=== PATIENT | female | born 1965 | race Caucasian/White ===

== ENCOUNTER 2019-09-28 16:53 | Inpatient (IN) ==
[2019-09-28] MEDS ORDERED: Isovue-370 500 ML BOTTLE IVP ONE (17:11)
[2019-09-28] MEDS ORDERED: *HR* FentaNYL (PF) 100 MCG/2 ML VIAL IVP ONE (17:11)
[2019-09-28] MEDS ORDERED: Ipratropium/Albuterol Neb 3 ML IH ONE (17:12)
[2019-09-28 17:32] LABS: Basophils % 0.1 %; Hemoglobin 6.8 g/dL (11.5-15.4); Immature Granulocytes % 1.1 % (0-4); Lymphocytes # 1.2 K/mcL (0.6-4.6); Lymphocytes % 9.1 %; Mean Corpuscular HGB Conc 30.9 g/dL (31.6-35.5); Mean Corpuscular Hemoglobin 22.7 pg (28.0-33.3); Mean Corpuscular Volume 73.6 fL (83.0-100.0); Mean Platelet Volume 9.6 fL (9.4-12.4); Monocytes # 1.2 K/mcL (0.0-1.3); Monocytes % 9.4 %; Neutrophils # 10.6 K/mcL (1.6-8.9); Nucleated Red Blood Cells 0.3 /100 WBC (0); Platelet Count 467 K/mcL (140-400); Red Blood Count 2.99 M/mcL (3.82-4.97); Red Cell Distribution Width 19.2 % (11.5-14.5); Segmented Neutrophils % 80.3 %; White Blood Count 13.1 K/mcL (4.3-11.1)
[2019-09-28 17:57] LABS: BUN/Creatinine Ratio 16 (6-26); Blood Urea Nitrogen 8 mg/dL (6-20); Calcium 9.1 mg/dL (8.6-10.3); Carbon Dioxide 27 mEq/L (23-29); Chloride 97 mEq/L (98-107); Glucose 130 mg/dL (70-105); Osmolality,Calculated 280 (280-300); Potassium 2.8 mEq/L (3.5-5.1); Sodium 135 mEq/L (136-145); Troponin I 0.04 ng/mL (< 0.04); eGFR For African Americans > 60 (> 60); eGFR For Non-African Americans > 60 (> 60)
[2019-09-28] MEDS ORDERED: *HR* HYDROmorphone (PF) 1 MG/ML SYRINGE IVP ONE (18:16)
[2019-09-28] MEDS ORDERED: Potassium Chloride 40 MEQ, Lidocaine 1% 2 ML in 0.9 % Sodium Chloride 500 ML IVPB ONE (18:17)
[2019-09-28] MEDS ORDERED: 0.9 % Sodium Chloride 500 ML ONE (19:51)
[2019-09-28] MEDS ORDERED: Pantoprazole 80 MG in 0.9 % Sodium Chloride 50 ML IVPB ONE (20:27)
[2019-09-28 20:34] LABS: Bilirubin,Urine Negative (Negative); Blood,Urine Negative (Negative); Clarity,Urine Clear (Clear); Color,Urine Yellow (Yellow); Glucose,Urine (UA) Normal (Normal); Ketones,Urine 80 mg/dL (Negative); Leukocyte Esterase,Urine Negative (Negative); Nitrite,Urine Negative (Negative); Protein,Urine Trace mg/dL (Neg-Trace); Specific Gravity,Urine > 1.030 (1.010-1.025)
[2019-09-28] MEDS ORDERED: Naloxone 0.4 MG/ML INJ IVP PRN (23:50)
[2019-09-28] MEDS ORDERED: D5% in Water 1,000 ML IVC PRN (23:54)
[2019-09-28] MEDS ORDERED: *HR* Dextrose 50 % in Water (Syg) 50 ML SYRINGE IVP PRN (23:54)
[2019-09-28] MEDS ORDERED: Dextrose Gel 15 GM/37.5 ML TUBE PO PRN ×2 (23:54)
[2019-09-28] MEDS ORDERED: Albuterol 2.5 MG/3 ML NEBULIZER IH PRN (23:54)
[2019-09-29] MEDS ORDERED: 0.9 % Sodium Chloride 250 ML ONE (00:09)
[2019-09-29 01:07] LABS: Hemoglobin 7.4 g/dL (11.5-15.4); Mean Corpuscular HGB Conc 30.8 g/dL (31.6-35.5); Mean Corpuscular Hemoglobin 23.3 pg (28.0-33.3); Mean Corpuscular Volume 75.5 fL (83.0-100.0); Mean Platelet Volume 10.3 fL (9.4-12.4); Platelet Count 422 K/mcL (140-400); Red Blood Count 3.18 M/mcL (3.82-4.97); Red Cell Distribution Width 19.1 % (11.5-14.5); White Blood Count 13.5 K/mcL (4.3-11.1)
[2019-09-29 01:20] LABS: Alanine Aminotransferase 7 Units/L (7-52); Albumin 3.3 g/dL (3.5-5.7); Albumin/Globulin Ratio 1.1 (1.1-2.2); Alkaline Phosphatase 101 Units/L (34-104); Aspartate Amino Transferase 20 Units/L (13-39); BUN/Creatinine Ratio 13 (6-26); Bilirubin,Total 1.1 mg/dL (0.3-1.0); Blood Urea Nitrogen 6 mg/dL (6-20); Calcium 8.6 mg/dL (8.6-10.3); Carbon Dioxide 24 mEq/L (23-29); Chloride 101 mEq/L (98-107); Globulin 3.1 g/dL (2.4-3.5); Glucose 120 mg/dL (70-105); Magnesium 1.6 mg/dL (1.6-2.6); Osmolality,Calculated 281 (280-300); Phosphorous 1.5 mg/dL (2.7-4.5); Potassium 3.2 mEq/L (3.5-5.1); Sodium 136 mEq/L (136-145); Total Protein 6.4 g/dL (6.4-8.9); eGFR For African Americans > 60 (> 60); eGFR For Non-African Americans > 60 (> 60)
[2019-09-29] MEDS: Insulin LISPRO 300 UNITS/3 ML VIAL SQ SCH ×4 (02:59→18:46)
[2019-09-29] MEDS ORDERED: Potassium Chloride 40 MEQ, Lidocaine 1% 2 ML in 0.9 % Sodium Chloride 500 ML IVPB ONE (03:14)
[2019-09-29] MEDS: Ipratropium/Albuterol Neb 3 ML IH SCH ×4 (04:12→22:09)
[2019-09-29] MEDS ORDERED: *HR* LORazepam 2 MG/ML VIAL IVP ONE (04:26)
[2019-09-29] MEDS ORDERED: *HR* LORazepam 2 MG/ML VIAL ONE (04:29)
[2019-09-29] MEDS: Pantoprazole 40 MG VIAL IVP SCH ×2 (06:04→18:46)
[2019-09-29] MEDS ORDERED: Potassium Phosphate 44 MEQ in 0.9 % Sodium Chloride 250 ML IVPB ONE (16:07)
[2019-09-29 17:57] LABS: Hematocrit 29.8 % (35.3-44.9); Hemoglobin 8.8 g/dL (11.5-15.4)
[2019-09-29] MEDS ORDERED: ALPRAZolam 0.5 MG TABLET PO PRN (20:21)
[2019-09-29] MEDS ORDERED: traZODone 50 MG TABLET PO SCH (21:00)
[2019-09-30] MEDS: Insulin LISPRO 300 UNITS/3 ML VIAL SQ SCH ×3 (00:36→12:03)
[2019-09-30] MEDS: Ipratropium/Albuterol Neb 3 ML IH SCH ×3 (04:51→15:13)
[2019-09-30] MEDS: Pantoprazole 40 MG VIAL IVP SCH (05:25)
[2019-09-30] MEDS ORDERED: Ketorolac 15 MG/ML VIAL IVP ONE (05:58)
[2019-09-30 07:13] LABS: Basophils % 0.3 %; Eosinophils # 0.1 K/mcL (0.0-0.6); Eosinophils % 0.8 %; Hematocrit 28.7 % (35.3-44.9); Hemoglobin 8.5 g/dL (11.5-15.4); Immature Granulocytes % 0.4 % (0-4); Lymphocytes # 2.5 K/mcL (0.6-4.6); Lymphocytes % 20.8 %; Mean Corpuscular HGB Conc 29.6 g/dL (31.6-35.5); Mean Corpuscular Hemoglobin 23.6 pg (28.0-33.3); Mean Corpuscular Volume 79.7 fL (83.0-100.0); Mean Platelet Volume 10.2 fL (9.4-12.4); Monocytes # 1.6 K/mcL (0.0-1.3); Monocytes % 13.6 %; Neutrophils # 7.7 K/mcL (1.6-8.9); Nucleated Red Blood Cells 0.2 /100 WBC (0); Platelet Count 416 K/mcL (140-400); Red Cell Distribution Width 19.6 % (11.5-14.5); Segmented Neutrophils % 64.1 %
[2019-09-30 07:32] LABS: BUN/Creatinine Ratio 12 (6-26); Blood Urea Nitrogen 6 mg/dL (6-20); Carbon Dioxide 24 mEq/L (23-29); Chloride 104 mEq/L (98-107); Glucose 105 mg/dL (70-105); Osmolality,Calculated 286 (280-300); Potassium 3.4 mEq/L (3.5-5.1); Sodium 139 mEq/L (136-145); eGFR For African Americans > 60 (> 60); eGFR For Non-African Americans > 60 (> 60)
[2019-09-30] MEDS ORDERED: Losartan/HCTZ 50-12.5 TABLET PO PRN (09:13)
[2019-09-30] MEDS ORDERED: SUMAtriptan succinate 50 MG TABLET PO PRN (09:13)
[2019-09-30] MEDS ORDERED: Budesonide/Formoterol 160/4.5 1 PUFF INH IH SCH (10:00)
[2019-09-30] MEDS ORDERED: Propofol 500 MG/50 ML INFUS..BTL ONE (12:39)
[2019-09-30] MEDS ORDERED: Lidocaine -MPF 2% 2 ML VIAL ONE (12:39)
[2019-09-30 12:46] VITALS: BP 156/79
[2019-09-30] MEDS ORDERED: Gabapentin 400 MG CAPSULE PO SCH (15:00)
[2019-10-01] MEDS ORDERED: Ondansetron ODT 4 MG TAB.RAPDIS PO SCH (09:00)
[2019-10-01] MEDS ORDERED: Furosemide 40 MG TABLET PO SCH (09:00)
[2019-10-01] MEDS ORDERED: Fluticasone Propionate Nasal 50 MCG/SPRAY BOTTLE NS SCH (09:00)
[2019-10-01] MEDS ORDERED: Tiotropium 18 MCG inhalation IH SCH (10:00)
[2019-10-03] MEDS ORDERED: (Etanercept [Enbrel] 50 MG) SQ SCH (09:13)
== END 2019-09-30 18:45 | disposition home or self-care (01) | DRG 663 ==
LOC: 3ANU 16:53 → EMEROOARM 16:53 → SUATTDRO 20:51 → 3ANU 21:20
PROVIDERS: ADMIT Family Medicine; ATTEND Internal Medicine

== ENCOUNTER 2019-10-01 20:36 | Inpatient (IN) ==
[2019-10-01] MEDS ORDERED: levoFLOXacin 500 MG/100 ML 500 MG/100 ML BAG IVPB ONE (21:38)
[2019-10-01] MEDS ORDERED: Piperacillin/Tazobactam 3.375 GM in 0.9 % Sodium Chloride Mini Bag 100 ML IVPB ONE (21:38)
[2019-10-01 21:39] LABS: Basophils % 0.2 %; Eosinophils # 0.1 K/mcL (0.0-0.6); Eosinophils % 0.4 %; Hematocrit 28.3 % (35.3-44.9); Hemoglobin 8.6 g/dL (11.5-15.4); Immature Granulocytes % 0.6 % (0-4); Lymphocytes # 0.8 K/mcL (0.6-4.6); Mean Corpuscular HGB Conc 30.4 g/dL (31.6-35.5); Mean Corpuscular Hemoglobin 23.6 pg (28.0-33.3); Mean Corpuscular Volume 77.5 fL (83.0-100.0); Mean Platelet Volume 9.7 fL (9.4-12.4); Monocytes # 0.4 K/mcL (0.0-1.3); Monocytes % 2.6 %; Neutrophils # 14.9 K/mcL (1.6-8.9); Platelet Count 386 K/mcL (140-400); Red Blood Count 3.65 M/mcL (3.82-4.97); Red Cell Distribution Width 20.1 % (11.5-14.5); Segmented Neutrophils % 91.2 %; White Blood Count 16.3 K/mcL (4.3-11.1)
[2019-10-01 22:01] LABS: Alanine Aminotransferase 11 Units/L (7-52); Albumin 3.3 g/dL (3.5-5.7); Albumin/Globulin Ratio 1.1 (1.1-2.2); Alkaline Phosphatase 109 Units/L (34-104); Aspartate Amino Transferase 26 Units/L (13-39); BUN/Creatinine Ratio 11 (6-26); Bilirubin,Total 1.1 mg/dL (0.3-1.0); Blood Urea Nitrogen 5 mg/dL (6-20); Calcium 8.6 mg/dL (8.6-10.3); Carbon Dioxide 22 mEq/L (23-29); Chloride 101 mEq/L (98-107); Globulin 3.1 g/dL (2.4-3.5); Glucose 122 mg/dL (70-105); Osmolality,Calculated 275 (280-300); Potassium 3.4 mEq/L (3.5-5.1); Sodium 133 mEq/L (136-145); Total Protein 6.4 g/dL (6.4-8.9); eGFR For African Americans > 60 (> 60); eGFR For Non-African Americans > 60 (> 60)
[2019-10-01 22:02] LABS: Troponin I 0.03 ng/mL (< 0.04)
[2019-10-01] MEDS ORDERED: *HR* HYDROmorphone (PF) 1 MG/ML SYRINGE IVP ONE (22:57)
[2019-10-02] MEDS ORDERED: Ondansetron 4 MG/2 ML VIAL IVP PRN (01:12)
[2019-10-02] MEDS ORDERED: Naloxone 0.4 MG/ML INJ IVP PRN (01:12)
[2019-10-02] MEDS ORDERED: Furosemide 40 MG/4 ML VIAL IVP ONE (01:18)
[2019-10-02] MEDS ORDERED: *HR* Dextrose 50 % in Water (Syg) 50 ML SYRINGE IVP PRN (01:20)
[2019-10-02] MEDS ORDERED: D5% in Water 1,000 ML IVC PRN (01:20)
[2019-10-02] MEDS ORDERED: Dextrose Gel 15 GM/37.5 ML TUBE PO PRN ×2 (01:20)
[2019-10-02 02:50] LABS: Basophils % 0.1 %; Hematocrit 30.4 % (35.3-44.9); Hemoglobin 9.1 g/dL (11.5-15.4); Immature Granulocytes % 0.6 % (0-4); Lymphocytes # 0.8 K/mcL (0.6-4.6); Lymphocytes % 4.8 %; Mean Corpuscular HGB Conc 29.9 g/dL (31.6-35.5); Mean Corpuscular Hemoglobin 23.3 pg (28.0-33.3); Mean Corpuscular Volume 77.7 fL (83.0-100.0); Mean Platelet Volume 9.9 fL (9.4-12.4); Monocytes # 0.3 K/mcL (0.0-1.3); Neutrophils # 14.5 K/mcL (1.6-8.9); Platelet Count 443 K/mcL (140-400); Red Blood Count 3.91 M/mcL (3.82-4.97); Red Cell Distribution Width 20.2 % (11.5-14.5); Segmented Neutrophils % 92.5 %; White Blood Count 15.7 K/mcL (4.3-11.1)
[2019-10-02 02:54] LABS: INR 1.5; Prothrombin Time 16.5 Seconds (9.4-12.1)
[2019-10-02 03:10] LABS: Alanine Aminotransferase 11 Units/L (7-52); Albumin 3.5 g/dL (3.5-5.7); Albumin/Globulin Ratio 1.1 (1.1-2.2); Alkaline Phosphatase 113 Units/L (34-104); Aspartate Amino Transferase 27 Units/L (13-39); BUN/Creatinine Ratio 10 (6-26); Bilirubin,Total 1.1 mg/dL (0.3-1.0); Blood Urea Nitrogen 5 mg/dL (6-20); Carbon Dioxide 22 mEq/L (23-29); Chloride 102 mEq/L (98-107); Globulin 3.3 g/dL (2.4-3.5); Glucose 182 mg/dL (70-105); Magnesium 1.6 mg/dL (1.6-2.6); Osmolality,Calculated 276 (280-300); Phosphorous 3.6 mg/dL (2.7-4.5); Potassium 3.3 mEq/L (3.5-5.1); Sodium 132 mEq/L (136-145); Total Protein 6.8 g/dL (6.4-8.9); eGFR For African Americans > 60 (> 60); eGFR For Non-African Americans > 60 (> 60)
[2019-10-02] MEDS: Ipratropium/Albuterol Neb 3 ML IH SCH ×6 (03:12→23:34)
[2019-10-02 04:47] LABS: Estimated Average Glucose 126 mg/dl
[2019-10-02] MEDS: *HR* Heparin 5,000 UNIT/ML VIAL SQ SCH ×3 (05:04→20:44)
[2019-10-02] MEDS: Tiotropium 18 MCG inhalation IH SCH (07:39)
[2019-10-02] MEDS: Budesonide/Formoterol 160/4.5 1 PUFF INH IH SCH ×2 (07:40→20:13)
[2019-10-02] MEDS: Piperacillin/Tazobactam 3.375 GM in 0.9 % Sodium Chloride Mini Bag 100 ML IVPB SCH ×2 (08:23→17:20)
[2019-10-02] MEDS: Insulin LISPRO 300 UNITS/3 ML VIAL SQ SCH ×4 (08:28→20:45)
[2019-10-02] MEDS: Gabapentin 400 MG CAPSULE PO SCH ×3 (08:30→20:43)
[2019-10-02] MEDS: Magnesium Oxide 400 MG TABLET PO SCH (08:31)
[2019-10-02] MEDS: Aspirin Enteric Coated 81 MG Tablet PO SCH (08:31)
[2019-10-02] MEDS: Famotidine 20 MG TABLET PO SCH (08:32)
[2019-10-02] MEDS: Methylphenidate HCl 10 MG TABLET PO SCH ×2 (08:32→20:43)
[2019-10-02] MEDS ORDERED: SUMAtriptan succinate 50 MG TABLET PO PRN (09:00)
[2019-10-02] MEDS ORDERED: Furosemide 40 MG/4 ML VIAL IVP STA (12:41)
[2019-10-02] MEDS ORDERED: Furosemide 40 MG/4 ML VIAL ONE (12:53)
[2019-10-02] MEDS: Fluticasone Propionate Nasal 50 MCG/SPRAY BOTTLE NS SCH (13:00)
[2019-10-02] MEDS ORDERED: Isovue-370 500 ML BOTTLE IVP ONE (14:30)
[2019-10-02] MEDS: traZODone 50 MG TABLET PO SCH (20:44)
[2019-10-02 23:52] LABS: ABG Base Excess 5 mEq/L (-2 to 3); ABG HCO3 29 mEq/L (21-27); ABG Oxygen Saturation 93 % (95-98); ABG PCO2 39 mmHg (35-45); ABG PH 7.48 pH Units (7.32-7.45); ABG PO2 62 mmHg (85-104); ABG TCO2 30 mEq/L (20-26)
[2019-10-03] MEDS: Piperacillin/Tazobactam 3.375 GM in 0.9 % Sodium Chloride Mini Bag 100 ML IVPB SCH ×3 (01:03→14:53)
[2019-10-03 01:34] LABS: Adenovirus Not Detected (Not Detect); Bordetella Pertussis Not Detected (Not Detect); Chlamydophila pneumoniae Not Detected (Not Detect); Coronavirus 229E Not Detected (Not Detect); Coronavirus HKU1 Not Detected (Not Detect); Coronavirus NL63 Not Detected (Not Detect); Coronavirus OC43 Not Detected (Not Detect); Human Metapneumovirus Not Detected (Not Detect); Human Rhinovirus/Enterovirus Not Detected (Not Detect); Influenza A Subtype 2009 H1 Not Detected (Not Detect); Influenza B Not Detected (Not Detect); Mycoplasma pneumoniae Not Detected (Not Detect); Parainfluenza Virus 1 Not Detected (Not Detect); Parainfluenza Virus 2 Not Detected (Not Detect); Parainfluenza Virus 3 Not Detected (Not Detect); Parainfluenza Virus 4 Not Detected (Not Detect); Respiratory Syncytial Virus Not Detected (Not Detect)
[2019-10-03 01:43] LABS: Mean Corpuscular Volume 78.8 fL (83.0-100.0)
[2019-10-03 01:58] LABS: Basophils # 0.1 K/mcL (0.0-0.2); Basophils % 0.3 %; Eosinophils # 0.1 K/mcL (0.0-0.6); Eosinophils % 0.4 %; Hematocrit 28.2 % (35.3-44.9); Hemoglobin 8.4 g/dL (11.5-15.4); Immature Granulocytes % 0.6 % (0-4); Lymphocytes # 2.6 K/mcL (0.6-4.6); Lymphocytes % 13.1 %; Mean Corpuscular HGB Conc 29.8 g/dL (31.6-35.5); Mean Corpuscular Hemoglobin 23.5 pg (28.0-33.3); Monocytes # 1.3 K/mcL (0.0-1.3); Monocytes % 6.7 %; Neutrophils # 15.6 K/mcL (1.6-8.9); Platelet Count 483 K/mcL (140-400); Red Blood Count 3.58 M/mcL (3.82-4.97); Red Cell Distribution Width 20.4 % (11.5-14.5); Segmented Neutrophils % 78.9 %; White Blood Count 19.7 K/mcL (4.3-11.1)
[2019-10-03 02:06] LABS: Alanine Aminotransferase 12 Units/L (7-52); Albumin 3.3 g/dL (3.5-5.7); Alkaline Phosphatase 109 Units/L (34-104); Aspartate Amino Transferase 29 Units/L (13-39); BUN/Creatinine Ratio 13 (6-26); Bilirubin,Total 0.7 mg/dL (0.3-1.0); Blood Urea Nitrogen 10 mg/dL (6-20); Calcium 8.4 mg/dL (8.6-10.3); Carbon Dioxide 26 mEq/L (23-29); Chloride 102 mEq/L (98-107); Globulin 3.3 g/dL (2.4-3.5); Glucose 157 mg/dL (70-105); Osmolality,Calculated 284 (280-300); Potassium 2.7 mEq/L (3.5-5.1); Sodium 136 mEq/L (136-145); Total Protein 6.6 g/dL (6.4-8.9); eGFR For African Americans > 60 (> 60); eGFR For Non-African Americans > 60 (> 60)
[2019-10-03] MEDS: Ipratropium/Albuterol Neb 3 ML IH SCH ×5 (03:56→19:41)
[2019-10-03] MEDS: *HR* Heparin 5,000 UNIT/ML VIAL SQ SCH ×3 (05:06→20:12)
[2019-10-03] MEDS: Tiotropium 18 MCG inhalation IH SCH (08:15)
[2019-10-03] MEDS: Budesonide/Formoterol 160/4.5 1 PUFF INH IH SCH ×2 (08:15→19:41)
[2019-10-03] MEDS: Insulin LISPRO 300 UNITS/3 ML VIAL SQ SCH ×4 (08:33→20:26)
[2019-10-03] MEDS: Methylphenidate HCl 10 MG TABLET PO SCH ×2 (08:42→20:13)
[2019-10-03] MEDS: Magnesium Oxide 400 MG TABLET PO SCH (08:42)
[2019-10-03] MEDS: Famotidine 20 MG TABLET PO SCH (08:43)
[2019-10-03] MEDS: Aspirin Enteric Coated 81 MG Tablet PO SCH (08:43)
[2019-10-03] MEDS: Gabapentin 400 MG CAPSULE PO SCH ×3 (08:43→20:13)
[2019-10-03] MEDS: Fluticasone Propionate Nasal 50 MCG/SPRAY BOTTLE NS SCH (08:45)
[2019-10-03] MEDS ORDERED: Furosemide 40 MG/4 ML VIAL IVP ONE (09:00)
[2019-10-03] MEDS ORDERED: methylPREDNISolone 125 MG/2 ML VIAL IVP STA (12:50)
[2019-10-03] MEDS ORDERED: Azithromycin 500 MG in 0.9 % Sodium Chloride 250 ML IVPB STA (12:53)
[2019-10-03 14:04] LABS: ABG Base Excess 6 mEq/L (-2 to 3); ABG HCO3 31 mEq/L (21-27); ABG Oxygen Saturation 86 % (95-98); ABG PCO2 45 mmHg (35-45); ABG PH 7.45 pH Units (7.32-7.45); ABG PO2 50 mmHg (85-104); ABG TCO2 32 mEq/L (20-26)
[2019-10-03 14:51] LABS: Troponin I 0.03 ng/mL (< 0.04)
[2019-10-03] MEDS: MethylPREDNISolone 40 MG/ML VIAL IVP SCH (17:01)
[2019-10-03] MEDS ORDERED: Furosemide 20 MG/2 ML VIAL IVP ONE (17:32)
[2019-10-03 20:04] LABS: Bilirubin,Urine Negative (Negative); Blood,Urine Negative (Negative); Clarity,Urine Clear (Clear); Color,Urine Yellow (Yellow); Glucose,Urine (UA) Normal (Normal); Ketones,Urine Negative (Negative); Leukocyte Esterase,Urine Negative (Negative); Nitrite,Urine Negative (Negative); PH,Urine 6.5 pH Units (5.0-8.0); Protein,Urine Negative (Neg-Trace); Urobilinogen,Urine Normal (Normal)
[2019-10-03] MEDS: traZODone 50 MG TABLET PO SCH (20:12)
[2019-10-04] MEDS: Ipratropium/Albuterol Neb 3 ML IH SCH ×6 (00:28→20:11)
[2019-10-04] MEDS: MethylPREDNISolone 40 MG/ML VIAL IVP SCH ×4 (01:32→23:21)
[2019-10-04] MEDS: Piperacillin/Tazobactam 3.375 GM in 0.9 % Sodium Chloride Mini Bag 100 ML IVPB SCH ×4 (01:32→23:21)
[2019-10-04 05:02] LABS: Iron < 10 mcg/dL (50-170); Transferrin 200 mg/dL (203-362)
[2019-10-04 05:03] LABS: Alanine Aminotransferase 12 Units/L (7-52); Albumin 3.2 g/dL (3.5-5.7); Albumin/Globulin Ratio 0.9 (1.1-2.2); Alkaline Phosphatase 108 Units/L (34-104); Aspartate Amino Transferase 34 Units/L (13-39); BUN/Creatinine Ratio 28 (6-26); Bilirubin,Total 0.7 mg/dL (0.3-1.0); Blood Urea Nitrogen 11 mg/dL (6-20); Calcium 8.8 mg/dL (8.6-10.3); Carbon Dioxide 31 mEq/L (23-29); Chloride 102 mEq/L (98-107); Globulin 3.5 g/dL (2.4-3.5); Glucose 200 mg/dL (70-105); Osmolality,Calculated 291 (280-300); Potassium 3.5 mEq/L (3.5-5.1); Sodium 138 mEq/L (136-145); Total Protein 6.7 g/dL (6.4-8.9); eGFR For African Americans > 60 (> 60); eGFR For Non-African Americans > 60 (> 60)
[2019-10-04 05:06] LABS: Basophils % 0.2 %; Hematocrit 27.8 % (35.3-44.9); Hemoglobin 8.2 g/dL (11.5-15.4); Immature Granulocytes % 0.8 % (0-4); Lymphocytes # 0.9 K/mcL (0.6-4.6); Lymphocytes % 4.8 %; Mean Corpuscular HGB Conc 29.5 g/dL (31.6-35.5); Mean Corpuscular Hemoglobin 23.5 pg (28.0-33.3); Mean Corpuscular Volume 79.7 fL (83.0-100.0); Monocytes # 0.5 K/mcL (0.0-1.3); Monocytes % 2.4 %; Neutrophils # 17.8 K/mcL (1.6-8.9); Platelet Count 486 K/mcL (140-400); Red Blood Count 3.49 M/mcL (3.82-4.97); Red Cell Distribution Width 20.2 % (11.5-14.5); Segmented Neutrophils % 91.8 %; White Blood Count 19.4 K/mcL (4.3-11.1)
[2019-10-04] MEDS: *HR* Heparin 5,000 UNIT/ML VIAL SQ SCH ×3 (05:19→20:48)
[2019-10-04 06:23] LABS: Anisocytosis 2+ (Not Present); Hypochromasia Present (Not Present); Platelet Estimate Increased (Normal)
[2019-10-04 06:24] LABS: Polychromasia 1+ (Not Present); Reactive Lymphocytes Present (Not Present)
[2019-10-04] MEDS: Insulin LISPRO 300 UNITS/3 ML VIAL SQ SCH ×4 (07:51→20:49)
[2019-10-04] MEDS ORDERED: Dexamethasone 4 MG/ML VIAL ONE (08:02)
[2019-10-04] MEDS ORDERED: Propofol 500 MG/50 ML INFUS..BTL ONE (08:02)
[2019-10-04] MEDS ORDERED: Ondansetron 4 MG/2 ML VIAL ONE (08:02)
[2019-10-04] MEDS ORDERED: Lidocaine -MPF 2% 2 ML VIAL ONE (08:02)
[2019-10-04] MEDS ORDERED: *HR* Succinylcholine 200 MG/10 ML VIAL IVP ONE (08:02)
[2019-10-04] MEDS ORDERED: Lidocaine HCL 4 ML Topical Solution (Laryng-O-Jet Kit Sterile Pak) TP ONE (08:02)
[2019-10-04] MEDS ORDERED: Heparin 1,000 UNITS/500 mL 0 ML ONE (09:00)
[2019-10-04] MEDS ORDERED: *HR* Propofol 200 MG/20 ML VIAL IVP ONE (09:27)
[2019-10-04] MEDS ORDERED: *HR* Midazolam HCl 5 MG/5 ML VIAL IVP ONE (09:29)
[2019-10-04] MEDS ORDERED: *HR* PHENYLEPHRINE 1,000 MCG/10 ML SYRINGE IVP ONE (10:13)
[2019-10-04] MEDS ORDERED: *HR* Midazolam HCl 2 MG/2 ML VIAL IVP ONE (10:57)
[2019-10-04 10:59] LABS: ABG Base Excess 8 mEq/L (-2 to 3); ABG HCO3 36 mEq/L (21-27); ABG Oxygen Saturation 99 % (95-98); ABG PCO2 70 mmHg (35-45); ABG PH 7.32 pH Units (7.32-7.45); ABG PO2 160 mmHg (85-104); ABG TCO2 38 mEq/L (20-26); Blood Gas Modality VC; Blood Gas VT 450 cc
[2019-10-04] MEDS: Budesonide/Formoterol 160/4.5 1 PUFF INH IH SCH ×2 (11:14→20:11)
[2019-10-04] MEDS: Tiotropium 18 MCG inhalation IH SCH (11:14)
[2019-10-04] MEDS ORDERED: Artificial Tears SOLN 15 ML BOTTLE BOTH EYES PRN (11:36)
[2019-10-04 11:52] LABS: ABG Base Excess 5 mEq/L (-2 to 3); ABG HCO3 33 mEq/L (21-27); ABG Oxygen Saturation 99 % (95-98); ABG PCO2 67 mmHg (35-45); ABG PO2 142 mmHg (85-104); ABG TCO2 35 mEq/L (20-26); Blood Gas Modality VC; Blood Gas VT 450 cc
[2019-10-04] MEDS: Dexmedetomidine HCl 400 MCG/100 ML MLS IVC SCH ×2 (12:35→15:19)
[2019-10-04] MEDS: Fluticasone Propionate Nasal 50 MCG/SPRAY BOTTLE NS SCH (12:36)
[2019-10-04] MEDS: Aspirin Enteric Coated 81 MG Tablet PO SCH (12:36)
[2019-10-04] MEDS: Famotidine 20 MG TABLET PO SCH (12:36)
[2019-10-04] MEDS: Furosemide 40 MG/4 ML VIAL IVP SCH (12:36)
[2019-10-04] MEDS: Magnesium Oxide 400 MG TABLET PO SCH (12:37)
[2019-10-04] MEDS: Azithromycin 250 MG TABLET PO SCH (12:37)
[2019-10-04] MEDS: Gabapentin 400 MG CAPSULE PO SCH ×3 (12:37→20:41)
[2019-10-04] MEDS: Methylphenidate HCl 10 MG TABLET PO SCH ×2 (12:39→20:41)
[2019-10-04] MEDS: FentaNYL (PF) 1,000 MCG in 0.9 % Sodium Chloride 80 ML IVC SCH ×2 (12:39→18:37)
[2019-10-04] MEDS: Artificial Tears SOLN 15 ML BOTTLE BOTH EYES SCH ×4 (13:35→23:26)
[2019-10-04] MEDS: Chlorhexidine Rinse 15 ML MOUTHWASH MM SCH ×2 (13:35→20:48)
[2019-10-04] MEDS ORDERED: Vancomycin 500 MG in 0.9 % Sodium Chloride Mini Bag 100 ML IVPB SCH (16:00)
[2019-10-04] MEDS ORDERED: Vancomycin 1,000 MG in 0.9 % Sodium Chloride Mini Bag 100 ML IVPB SCH (16:02)
[2019-10-04 16:09] LABS: Appearance of Body Fluid Slightly Hazy (Clear)
[2019-10-04 16:10] LABS: Volume of Body Fluid 10 mL
[2019-10-04 16:13] LABS: Appearance of Body Fluid Slightly Hazy (Clear); Volume of Body Fluid 11 mL
[2019-10-04 16:27] LABS: Appearance of Body Fluid Cloudy (Clear); Volume of Body Fluid 13 mL
[2019-10-04 16:36] LABS: Appearance of Body Fluid Slightly Hazy (Clear); Volume of Body Fluid 12 mL
[2019-10-04 16:47] LABS: BUN/Creatinine Ratio 28 (6-26); Blood Urea Nitrogen 13 mg/dL (6-20); Carbon Dioxide 32 mEq/L (23-29); Chloride 102 mEq/L (98-107); Glucose 172 mg/dL (70-105); Osmolality,Calculated 292 (280-300); Potassium 3.3 mEq/L (3.5-5.1); Sodium 139 mEq/L (136-145); eGFR For African Americans > 60 (> 60); eGFR For Non-African Americans > 60 (> 60)
[2019-10-04] MEDS: Pantoprazole 40 MG VIAL IVP SCH (17:50)
[2019-10-04] MEDS ORDERED: Furosemide 20 MG/2 ML VIAL IVP ONE (18:00)
[2019-10-04] MEDS: traZODone 50 MG TABLET PO SCH (20:41)
[2019-10-05] MEDS: Ipratropium/Albuterol Neb 3 ML IH SCH ×7 (00:25→23:49)
[2019-10-05] MEDS: Dexmedetomidine HCl 400 MCG/100 ML MLS IVC SCH ×4 (01:11→22:21)
[2019-10-05] MEDS: Artificial Tears SOLN 15 ML BOTTLE BOTH EYES SCH ×6 (04:30→22:59)
[2019-10-05] MEDS: *HR* Heparin 5,000 UNIT/ML VIAL SQ SCH ×3 (05:06→22:48)
[2019-10-05] MEDS: Pantoprazole 40 MG VIAL IVP SCH ×2 (05:07→16:57)
[2019-10-05 05:45] LABS: ABG Base Excess 10 mEq/L (-2 to 3); ABG HCO3 33 mEq/L (21-27); ABG Oxygen Saturation 94 % (95-98); ABG PCO2 38 mmHg (35-45); ABG PH 7.55 pH Units (7.32-7.45); ABG PO2 61 mmHg (85-104); ABG TCO2 35 mEq/L (20-26); Blood Gas Modality ASSIST CONTROL; Blood Gas VT 470 cc
[2019-10-05] MEDS ORDERED: Acetaminophen IV 1,000 MG/100 ML INFUS..BTL IVPB ONE (06:13)
[2019-10-05 07:27] LABS: Basophils % 0.1 %; Mean Platelet Volume 10.2 fL (9.4-12.4)
[2019-10-05 07:28] LABS: Hemoglobin 7.9 g/dL (11.5-15.4); Immature Granulocytes % 0.7 % (0-4); Lymphocytes # 0.7 K/mcL (0.6-4.6); Mean Corpuscular HGB Conc 28.2 g/dL (31.6-35.5); Mean Corpuscular Hemoglobin 23.2 pg (28.0-33.3); Mean Corpuscular Volume 82.4 fL (83.0-100.0); Monocytes # 0.7 K/mcL (0.0-1.3); Monocytes % 4.2 %; Neutrophils # 16.1 K/mcL (1.6-8.9); Platelet Count 504 K/mcL (140-400); Red Cell Distribution Width 20.3 % (11.5-14.5); White Blood Count 17.7 K/mcL (4.3-11.1)
[2019-10-05] MEDS: Tiotropium 18 MCG inhalation IH SCH (07:36)
[2019-10-05] MEDS: Budesonide/Formoterol 160/4.5 1 PUFF INH IH SCH ×2 (07:37→20:04)
[2019-10-05 07:44] LABS: Alanine Aminotransferase 10 Units/L (7-52); Albumin 3.2 g/dL (3.5-5.7); Albumin/Globulin Ratio 0.9 (1.1-2.2); Alkaline Phosphatase 104 Units/L (34-104); Aspartate Amino Transferase 19 Units/L (13-39); BUN/Creatinine Ratio 32 (6-26); Bilirubin,Total 0.5 mg/dL (0.3-1.0); Blood Urea Nitrogen 17 mg/dL (6-20); Calcium 9.1 mg/dL (8.6-10.3); Carbon Dioxide 32 mEq/L (23-29); Chloride 100 mEq/L (98-107); Globulin 3.6 g/dL (2.4-3.5); Glucose 177 mg/dL (70-105); Osmolality,Calculated 302 (280-300); Potassium 3.5 mEq/L (3.5-5.1); Sodium 143 mEq/L (136-145); Total Protein 6.8 g/dL (6.4-8.9); eGFR For African Americans > 60 (> 60); eGFR For Non-African Americans > 60 (> 60)
[2019-10-05] MEDS: Azithromycin 250 MG TABLET PO SCH (08:02)
[2019-10-05] MEDS: Furosemide 40 MG/4 ML VIAL IVP SCH (08:02)
[2019-10-05] MEDS: Chlorhexidine Rinse 15 ML MOUTHWASH MM SCH ×2 (08:02→22:03)
[2019-10-05] MEDS: MethylPREDNISolone 40 MG/ML VIAL IVP SCH ×3 (08:03→22:59)
[2019-10-05] MEDS: Piperacillin/Tazobactam 3.375 GM in 0.9 % Sodium Chloride Mini Bag 100 ML IVPB SCH ×3 (08:03→23:00)
[2019-10-05] MEDS: Aspirin Enteric Coated 81 MG Tablet PO SCH (08:04)
[2019-10-05] MEDS: Magnesium Oxide 400 MG TABLET PO SCH (08:04)
[2019-10-05] MEDS: Gabapentin 400 MG CAPSULE PO SCH ×3 (08:05→20:03)
[2019-10-05] MEDS: Methylphenidate HCl 10 MG TABLET PO SCH ×2 (08:05→20:03)
[2019-10-05] MEDS: FentaNYL (PF) 1,000 MCG in 0.9 % Sodium Chloride 80 ML IVC SCH (08:07)
[2019-10-05 08:23] LABS: Anisocytosis 1+ (Not Present); Hypochromasia Present (Not Present); Platelet Estimate Increased (Normal)
[2019-10-05] MEDS: Insulin LISPRO 300 UNITS/3 ML VIAL SQ SCH ×4 (08:43→20:02)
[2019-10-05] MEDS: Fluticasone Propionate Nasal 50 MCG/SPRAY BOTTLE NS SCH (12:33)
[2019-10-05] MEDS: traZODone 50 MG TABLET PO SCH (20:03)
[2019-10-06] MEDS: Artificial Tears SOLN 15 ML BOTTLE BOTH EYES SCH ×3 (03:20→11:25)
[2019-10-06] MEDS: Ipratropium/Albuterol Neb 3 ML IH SCH ×6 (03:42→23:06)
[2019-10-06 05:00] LABS: Basophils % 0.1 %; Immature Granulocytes % 0.8 % (0-4); Mean Platelet Volume 9.8 fL (9.4-12.4)
[2019-10-06 05:01] LABS: Hematocrit 28.6 % (35.3-44.9); Hemoglobin 8.4 g/dL (11.5-15.4); Lymphocytes # 0.9 K/mcL (0.6-4.6); Lymphocytes % 5.9 %; Mean Corpuscular HGB Conc 29.4 g/dL (31.6-35.5); Mean Corpuscular Hemoglobin 23.3 pg (28.0-33.3); Mean Corpuscular Volume 79.2 fL (83.0-100.0); Monocytes # 0.5 K/mcL (0.0-1.3); Monocytes % 3.4 %; Neutrophils # 14.2 K/mcL (1.6-8.9); Platelet Count 558 K/mcL (140-400); Red Blood Count 3.61 M/mcL (3.82-4.97); Segmented Neutrophils % 89.8 %; White Blood Count 15.8 K/mcL (4.3-11.1)
[2019-10-06 05:20] LABS: Alanine Aminotransferase 23 Units/L (7-52); Albumin 3.1 g/dL (3.5-5.7); Albumin/Globulin Ratio 0.9 (1.1-2.2); Alkaline Phosphatase 109 Units/L (34-104); Aspartate Amino Transferase 48 Units/L (13-39); BUN/Creatinine Ratio 40 (6-26); Bilirubin,Total 0.6 mg/dL (0.3-1.0); Blood Urea Nitrogen 21 mg/dL (6-20); Carbon Dioxide 33 mEq/L (23-29); Chloride 99 mEq/L (98-107); Globulin 3.3 g/dL (2.4-3.5); Glucose 201 mg/dL (70-105); Osmolality,Calculated 299 (280-300); Potassium 3.5 mEq/L (3.5-5.1); Sodium 140 mEq/L (136-145); Total Protein 6.4 g/dL (6.4-8.9); eGFR For African Americans > 60 (> 60); eGFR For Non-African Americans > 60 (> 60)
[2019-10-06 06:07] LABS: Hypochromasia Present (Not Present)
[2019-10-06 06:08] LABS: Polychromasia 1+ (Not Present)
[2019-10-06] MEDS: *HR* Heparin 5,000 UNIT/ML VIAL SQ SCH ×3 (06:10→22:56)
[2019-10-06] MEDS: Pantoprazole 40 MG VIAL IVP SCH ×2 (06:10→15:52)
[2019-10-06 06:11] LABS: Platelet Estimate Increased (Normal)
[2019-10-06] MEDS: Chlorhexidine Rinse 15 ML MOUTHWASH MM SCH ×2 (07:39→19:37)
[2019-10-06] MEDS: Furosemide 40 MG/4 ML VIAL IVP SCH ×3 (07:39→15:52)
[2019-10-06] MEDS: Magnesium Oxide 400 MG TABLET PO SCH (07:40)
[2019-10-06] MEDS: Piperacillin/Tazobactam 3.375 GM in 0.9 % Sodium Chloride Mini Bag 100 ML IVPB SCH ×3 (07:40→22:56)
[2019-10-06] MEDS: Methylphenidate HCl 10 MG TABLET PO SCH ×2 (07:40→19:37)
[2019-10-06] MEDS: Gabapentin 400 MG CAPSULE PO SCH ×3 (07:40→19:37)
[2019-10-06] MEDS: Azithromycin 250 MG TABLET PO SCH (07:40)
[2019-10-06] MEDS ORDERED: Aminoglycoside Consult 1 EACH MC ONE (07:40)
[2019-10-06] MEDS: Aspirin Enteric Coated 81 MG Tablet PO SCH (07:40)
[2019-10-06] MEDS: MethylPREDNISolone 40 MG/ML VIAL IVP SCH ×3 (07:40→22:56)
[2019-10-06] MEDS: Fluticasone Propionate Nasal 50 MCG/SPRAY BOTTLE NS SCH (07:41)
[2019-10-06] MEDS: Insulin LISPRO 300 UNITS/3 ML VIAL SQ SCH ×4 (07:47→19:40)
[2019-10-06] MEDS: Budesonide/Formoterol 160/4.5 1 PUFF INH IH SCH ×2 (08:24→19:23)
[2019-10-06] MEDS: Tiotropium 18 MCG inhalation IH SCH (08:28)
[2019-10-06] MEDS: traZODone 50 MG TABLET PO SCH (19:35)
[2019-10-07] MEDS: Ipratropium/Albuterol Neb 3 ML IH SCH ×7 (03:31→23:42)
[2019-10-07 04:53] LABS: Basophils % 0.1 %; Hemoglobin 8.7 g/dL (11.5-15.4); Immature Granulocytes % 0.4 % (0-4); Lymphocytes # 0.5 K/mcL (0.6-4.6); Lymphocytes % 5.8 %; Mean Corpuscular Hemoglobin 22.7 pg (28.0-33.3); Mean Corpuscular Volume 78.3 fL (83.0-100.0); Mean Platelet Volume 9.8 fL (9.4-12.4); Monocytes # 0.4 K/mcL (0.0-1.3); Monocytes % 3.8 %; Neutrophils # 8.2 K/mcL (1.6-8.9); Platelet Count 602 K/mcL (140-400); Red Blood Count 3.83 M/mcL (3.82-4.97); Red Cell Distribution Width 20.1 % (11.5-14.5); Segmented Neutrophils % 89.9 %; White Blood Count 9.1 K/mcL (4.3-11.1)
[2019-10-07 05:05] LABS: BUN/Creatinine Ratio 34 (6-26); Blood Urea Nitrogen 18 mg/dL (6-20); Calcium 8.7 mg/dL (8.6-10.3); Carbon Dioxide 34 mEq/L (23-29); Chloride 98 mEq/L (98-107); Glucose 280 mg/dL (70-105); Osmolality,Calculated 298 (280-300); Potassium 3.3 mEq/L (3.5-5.1); Sodium 138 mEq/L (136-145); eGFR For African Americans > 60 (> 60); eGFR For Non-African Americans > 60 (> 60)
[2019-10-07] MEDS: *HR* Heparin 5,000 UNIT/ML VIAL SQ SCH ×3 (06:04→20:35)
[2019-10-07] MEDS: Pantoprazole 40 MG VIAL IVP SCH ×2 (06:04→16:54)
[2019-10-07 06:27] LABS: Hypochromasia Present (Not Present); Platelet Estimate Increased (Normal)
[2019-10-07] MEDS: Budesonide/Formoterol 160/4.5 1 PUFF INH IH SCH ×2 (07:29→20:04)
[2019-10-07] MEDS: MethylPREDNISolone 40 MG/ML VIAL IVP SCH ×2 (07:45→16:54)
[2019-10-07] MEDS: Chlorhexidine Rinse 15 ML MOUTHWASH MM SCH ×2 (07:45→20:35)
[2019-10-07] MEDS: Piperacillin/Tazobactam 3.375 GM in 0.9 % Sodium Chloride Mini Bag 100 ML IVPB SCH (07:45)
[2019-10-07] MEDS: Furosemide 40 MG/4 ML VIAL IVP SCH ×2 (07:45→16:54)
[2019-10-07] MEDS: Gabapentin 400 MG CAPSULE PO SCH ×3 (07:45→20:36)
[2019-10-07] MEDS: Methylphenidate HCl 10 MG TABLET PO SCH (07:45)
[2019-10-07] MEDS: Magnesium Oxide 400 MG TABLET PO SCH (07:45)
[2019-10-07] MEDS: Azithromycin 250 MG TABLET PO SCH (07:45)
[2019-10-07] MEDS: Aspirin Enteric Coated 81 MG Tablet PO SCH (07:46)
[2019-10-07] MEDS: Insulin LISPRO 300 UNITS/3 ML VIAL SQ SCH ×4 (07:58→20:48)
[2019-10-07] MEDS: Fluticasone Propionate Nasal 50 MCG/SPRAY BOTTLE NS SCH (07:58)
[2019-10-07] MEDS: Tiotropium 18 MCG inhalation IH SCH (09:38)
[2019-10-07] MEDS ORDERED: SUMAtriptan succinate 50 MG TABLET PO PRN (14:02)
[2019-10-07] MEDS ORDERED: Artificial Tears SOLN 15 ML BOTTLE BOTH EYES PRN (15:14)
[2019-10-07] MEDS ORDERED: Dextrose Gel 15 GM/37.5 ML TUBE PO PRN ×2 (15:14)
[2019-10-07] MEDS ORDERED: D5% in Water 1,000 ML IVC PRN (15:14)
[2019-10-07] MEDS ORDERED: Ondansetron 4 MG/2 ML VIAL IVP PRN (15:14)
[2019-10-07] MEDS ORDERED: *HR* Dextrose 50 % in Water (Syg) 50 ML SYRINGE IVP PRN (15:14)
[2019-10-07] MEDS ORDERED: Naloxone 0.4 MG/ML INJ IVP PRN (15:14)
[2019-10-07 16:49] LABS: HSV Source BAL
[2019-10-07 16:51] LABS: HSV Source BAL
[2019-10-07 16:51] LABS: HSV Source BAL
[2019-10-07 16:51] LABS: HSV Source BAL
[2019-10-07] MEDS ORDERED: Methylphenidate HCl 10 MG TABLET PO SCH (17:00)
[2019-10-07] MEDS ORDERED: MethylPREDNISolone 40 MG/ML VIAL IVP SCH (18:00)
[2019-10-07] MEDS ORDERED: traZODone 50 MG TABLET PO SCH (21:00)
[2019-10-08] MEDS ORDERED: *HR* OxyCODONE Immed Rel 5 MG TABLET PO ONE (00:19)
[2019-10-08] MEDS: Ipratropium/Albuterol Neb 3 ML IH SCH ×6 (03:47→23:21)
[2019-10-08 05:46] LABS: Influenza A PCR Body Fluid NOT DETECTED; Influenza B PCR Body Fluid NOT DETECTED; RVP Body Fluid Source BAL
[2019-10-08 05:47] LABS: Influenza A PCR Body Fluid NOT DETECTED; Influenza B PCR Body Fluid NOT DETECTED; RVP Body Fluid Source BAL
[2019-10-08 05:47] LABS: Influenza A PCR Body Fluid NOT DETECTED; Influenza B PCR Body Fluid NOT DETECTED; RVP Body Fluid Source BAL
[2019-10-08 05:47] LABS: Influenza A PCR Body Fluid NOT DETECTED; Influenza B PCR Body Fluid NOT DETECTED; RVP Body Fluid Source BAL
[2019-10-08] MEDS: Pantoprazole 40 MG VIAL IVP SCH (05:52)
[2019-10-08] MEDS: MethylPREDNISolone 40 MG/ML VIAL IVP SCH ×2 (05:52→16:41)
[2019-10-08] MEDS: *HR* Heparin 5,000 UNIT/ML VIAL SQ SCH ×3 (05:52→19:59)
[2019-10-08 06:07] LABS: Basophils % 0.1 %; Eosinophils % 0.1 %; Hematocrit 32.3 % (35.3-44.9); Hemoglobin 9.4 g/dL (11.5-15.4); Immature Granulocytes % 0.6 % (0-4); Lymphocytes % 15.3 %; Mean Corpuscular HGB Conc 29.1 g/dL (31.6-35.5); Mean Corpuscular Hemoglobin 23.4 pg (28.0-33.3); Mean Corpuscular Volume 80.5 fL (83.0-100.0); Mean Platelet Volume 10.1 fL (9.4-12.4); Monocytes # 1.1 K/mcL (0.0-1.3); Monocytes % 8.4 %; Platelet Count 554 K/mcL (140-400); Red Blood Count 4.01 M/mcL (3.82-4.97); Red Cell Distribution Width 19.9 % (11.5-14.5); Segmented Neutrophils % 75.5 %; White Blood Count 13.3 K/mcL (4.3-11.1)
[2019-10-08 06:30] LABS: BUN/Creatinine Ratio 27 (6-26); Blood Urea Nitrogen 14 mg/dL (6-20); Calcium 9.2 mg/dL (8.6-10.3); Carbon Dioxide 37 mEq/L (23-29); Chloride 94 mEq/L (98-107); Glucose 189 mg/dL (70-105); Osmolality,Calculated 294 (280-300); Potassium 3.7 mEq/L (3.5-5.1); Sodium 139 mEq/L (136-145); eGFR For African Americans > 60 (> 60); eGFR For Non-African Americans > 60 (> 60)
[2019-10-08] MEDS: Budesonide/Formoterol 160/4.5 1 PUFF INH IH SCH ×2 (07:37→19:47)
[2019-10-08] MEDS: Gabapentin 400 MG CAPSULE PO SCH ×3 (07:52→20:07)
[2019-10-08] MEDS: Aspirin Enteric Coated 81 MG Tablet PO SCH (07:52)
[2019-10-08] MEDS: Magnesium Oxide 400 MG TABLET PO SCH (07:52)
[2019-10-08] MEDS: Chlorhexidine Rinse 15 ML MOUTHWASH MM SCH ×2 (07:53→20:08)
[2019-10-08] MEDS: Insulin LISPRO 300 UNITS/3 ML VIAL SQ SCH ×4 (07:53→20:09)
[2019-10-08] MEDS: Furosemide 40 MG/4 ML VIAL IVP SCH ×2 (07:53→16:41)
[2019-10-08 10:07] LABS: RSV PCR Body Fluid NOT DETECTED
[2019-10-08 10:07] LABS: RSV PCR Body Fluid NOT DETECTED
[2019-10-08 10:08] LABS: RSV PCR Body Fluid NOT DETECTED
[2019-10-08 10:08] LABS: RSV PCR Body Fluid NOT DETECTED
[2019-10-08] MEDS: *HR* OxyCODONE Immed Rel 15 MG TABLET PO PRN ×3 (10:52→20:08)
[2019-10-08] MEDS: Fluticasone Propionate Nasal 50 MCG/SPRAY BOTTLE NS SCH (10:59)
[2019-10-08] MEDS ORDERED: Bisacodyl 10 MG RECTAL SUPPOSITORY RC PRN (15:29)
[2019-10-08] MEDS ORDERED: predniSONE 20 MG TABLET PO ONE (17:30)
[2019-10-08] MEDS: Sennosides/Docusate Sodium TABLET PO SCH (20:00)
[2019-10-08] MEDS ORDERED: Insulin DETEMIR 100 UNIT/ML X5UNITS SQ SCH (21:00)
[2019-10-09] MEDS: *HR* OxyCODONE Immed Rel 15 MG TABLET PO PRN ×2 (00:23→05:34)
[2019-10-09 02:24] LABS: Basophils % 0.1 %; Hematocrit 30.8 % (35.3-44.9); Immature Granulocytes % 0.8 % (0-4); Lymphocytes # 0.5 K/mcL (0.6-4.6); Lymphocytes % 4.6 %; Mean Corpuscular HGB Conc 29.2 g/dL (31.6-35.5); Mean Corpuscular Hemoglobin 23.1 pg (28.0-33.3); Mean Corpuscular Volume 79.2 fL (83.0-100.0); Monocytes # 0.3 K/mcL (0.0-1.3); Monocytes % 2.9 %; Neutrophils # 9.5 K/mcL (1.6-8.9); Platelet Count 611 K/mcL (140-400); Red Blood Count 3.89 M/mcL (3.82-4.97); Red Cell Distribution Width 20.1 % (11.5-14.5); Segmented Neutrophils % 91.6 %; White Blood Count 10.3 K/mcL (4.3-11.1)
[2019-10-09 02:42] LABS: BUN/Creatinine Ratio 27 (6-26); Blood Urea Nitrogen 15 mg/dL (6-20); Chloride 94 mEq/L (98-107); Glucose 295 mg/dL (70-105); Osmolality,Calculated 298 (280-300); Potassium 3.4 mEq/L (3.5-5.1); Sodium 138 mEq/L (136-145); eGFR For African Americans > 60 (> 60); eGFR For Non-African Americans > 60 (> 60)
[2019-10-09 02:50] LABS: Carbon Dioxide 33 mEq/L (23-29)
[2019-10-09] MEDS: Ipratropium/Albuterol Neb 3 ML IH SCH ×4 (03:19→11:14)
[2019-10-09] MEDS: *HR* Heparin 5,000 UNIT/ML VIAL SQ SCH (05:34)
[2019-10-09 06:59] VITALS: BP 109/70
[2019-10-09] MEDS: Budesonide/Formoterol 160/4.5 1 PUFF INH IH SCH (07:24)
[2019-10-09] MEDS: Gabapentin 400 MG CAPSULE PO SCH (07:40)
[2019-10-09] MEDS: Chlorhexidine Rinse 15 ML MOUTHWASH MM SCH (07:40)
[2019-10-09] MEDS: Aspirin Enteric Coated 81 MG Tablet PO SCH (07:40)
[2019-10-09] MEDS: Magnesium Oxide 400 MG TABLET PO SCH (07:41)
[2019-10-09] MEDS: Sennosides/Docusate Sodium TABLET PO SCH (07:41)
[2019-10-09] MEDS: Insulin LISPRO 300 UNITS/3 ML VIAL SQ SCH (07:42)
[2019-10-09] MEDS: Fluticasone Propionate Nasal 50 MCG/SPRAY BOTTLE NS SCH (08:07)
[2019-10-09] MEDS ORDERED: Furosemide 40 MG TABLET PO SCH (09:00)
== END 2019-10-09 11:28 | disposition home or self-care (01) | DRG 139 ==
LOC: EMEROOARM 20:36 → 3NENU 20:36 → SUATTDRO 22:27 → 3NENU 23:12 → 2NNU 10-03 13:41 → SUATTDRO 10-03 15:47 → ICNU 10-04 10:13 → 2ANU 10-07 15:05
PROVIDERS: ADMIT Internal Medicine; ATTEND Internal Medicine

== ENCOUNTER 2019-12-16 10:43 | Inpatient (IN) ==
[2019-12-16] MEDS ORDERED: Piperacillin/Tazobactam 3.375 GM in Water for inj. (sterile) 20 ML IVP ONE (10:54)
[2019-12-16] MEDS ORDERED: Ipratropium/Albuterol Neb 3 ML IH ONE (10:54)
[2019-12-16] MEDS ORDERED: methylPREDNISolone 125 MG/2 ML VIAL IVP ONE (10:54)
[2019-12-16] MEDS ORDERED: Albuterol 2.5 MG/3 ML NEBULIZER IH ONE (10:54)
[2019-12-16 11:18] LABS: Basophils # 0.1 K/mcL (0.0-0.2); Basophils % 0.3 %; Eosinophils # 0.2 K/mcL (0.0-0.6); Eosinophils % 1.1 %; Hematocrit 44.5 % (35.3-44.9); Hemoglobin 13.8 g/dL (11.5-15.4); Immature Granulocytes % 0.4 % (0-4); Lymphocytes # 4.7 K/mcL (0.6-4.6); Lymphocytes % 26.6 %; Mean Corpuscular Hemoglobin 26.3 pg (28.0-33.3); Mean Corpuscular Volume 84.8 fL (83.0-100.0); Mean Platelet Volume 9.4 fL (9.4-12.4); Monocytes # 1.2 K/mcL (0.0-1.3); Monocytes % 6.7 %; Neutrophils # 11.5 K/mcL (1.6-8.9); Platelet Count 484 K/mcL (140-400); Red Blood Count 5.25 M/mcL (3.82-4.97); Red Cell Distribution Width 19.3 % (11.5-14.5); Segmented Neutrophils % 64.9 %; White Blood Count 17.8 K/mcL (4.3-11.1)
[2019-12-16] MEDS ORDERED: *HR* LORazepam 2 MG/ML VIAL IVP ONE (11:38)
[2019-12-16 11:42] LABS: Alanine Aminotransferase 31 Units/L (7-52); Albumin 4.7 g/dL (3.5-5.7); Albumin/Globulin Ratio 1.4 (1.1-2.2); Alkaline Phosphatase 165 Units/L (34-104); Aspartate Amino Transferase 22 Units/L (13-39); BUN/Creatinine Ratio 16 (6-26); Bilirubin,Direct 0.2 mg/dL (0.0-0.2); Bilirubin,Indirect 0.6 mg/dL (0.0-1.0); Bilirubin,Total 0.8 mg/dL (0.3-1.0); Blood Urea Nitrogen 11 mg/dL (6-20); Calcium 10.4 mg/dL (8.6-10.3); Carbon Dioxide 21 mEq/L (23-29); Chloride 102 mEq/L (98-107); Globulin 3.4 g/dL (2.4-3.5); Glucose 90 mg/dL (70-105); Osmolality,Calculated 283 (280-300); Sodium 137 mEq/L (136-145); Total Protein 8.1 g/dL (6.4-8.9); Troponin I < 0.03 ng/mL (< 0.04); eGFR For African Americans > 60 (> 60); eGFR For Non-African Americans > 60 (> 60)
[2019-12-16] MEDS ORDERED: 0.9 % Sodium Chloride 1,000 ML IV ONE (14:07)
[2019-12-16] MEDS ORDERED: Naloxone 0.4 MG/ML INJ IVP PRN (14:25)
[2019-12-16] MEDS ORDERED: Ondansetron 4 MG/2 ML VIAL IVP PRN (14:25)
[2019-12-16] MEDS ORDERED: Dextrose Gel 15 GM/37.5 ML TUBE PO PRN ×2 (14:56)
[2019-12-16] MEDS ORDERED: D5% in Water 1,000 ML IVC PRN (14:56)
[2019-12-16] MEDS ORDERED: *HR* Dextrose 50 % in Water (Syg) 50 ML SYRINGE IVP PRN (14:56)
[2019-12-16] MEDS ORDERED: 0.9 % Sodium Chloride 1,000 ML IVC SCH (15:00)
[2019-12-16] MEDS ORDERED: 0.9 % Sodium Chloride 1,000 ML IVC ONE ×2 (15:13→20:30)
[2019-12-16] MEDS: Levalbuterol Neb 0.63 MG/3 ML IH SCH ×2 (15:50→22:20)
[2019-12-16 16:55] LABS: Adenovirus Not Detected (Not Detect); Coronavirus 229E Not Detected (Not Detect); Coronavirus HKU1 Not Detected (Not Detect); Coronavirus NL63 Not Detected (Not Detect); Coronavirus OC43 Not Detected (Not Detect); Human Metapneumovirus Not Detected (Not Detect); Human Rhinovirus/Enterovirus DETECTED (Not Detect)
[2019-12-16 16:56] LABS: Bordetella Pertussis Not Detected (Not Detect); Chlamydophila pneumoniae Not Detected (Not Detect); Influenza A Subtype 2009 H1 Not Detected (Not Detect); Influenza B Not Detected (Not Detect); Mycoplasma pneumoniae Not Detected (Not Detect); Parainfluenza Virus 1 Not Detected (Not Detect); Parainfluenza Virus 2 Not Detected (Not Detect); Parainfluenza Virus 3 Not Detected (Not Detect); Parainfluenza Virus 4 Not Detected (Not Detect); Respiratory Syncytial Virus Not Detected (Not Detect)
[2019-12-16] MEDS: Insulin LISPRO 300 UNITS/3 ML VIAL SQ SCH (17:31)
[2019-12-16] MEDS: *HR* Rivaroxaban 10 MG TABLET PO SCH (17:48)
[2019-12-16] MEDS: Piperacillin/Tazobactam 3.375 GM in 0.9 % Sodium Chloride Mini Bag 100 ML IVPB SCH (17:49)
[2019-12-16] MEDS: D5% in 0.9% NACL 1,000 ML IVC SCH (17:49)
[2019-12-16] MEDS: MethylPREDNISolone 40 MG/ML VIAL IVP SCH (17:50)
[2019-12-16] MEDS ORDERED: Insulin LISPRO 300 UNITS/3 ML VIAL SQ SCH (21:00)
[2019-12-16 22:24] LABS: ABG Base Excess -2 mEq/L (-2 to 3); ABG HCO3 23 mEq/L (21-27); ABG Oxygen Saturation 98 % (95-98); ABG PCO2 39 mmHg (35-45); ABG PH 7.38 pH Units (7.32-7.45); ABG PO2 105 mmHg (85-104); ABG TCO2 25 mEq/L (20-26)
[2019-12-16] MEDS ORDERED: Ibuprofen 400 MG TABLET PO ONE (22:27)
[2019-12-16] MEDS ORDERED: *HR* OxyCODONE/APAP 5/325 TABLET PO ONE (23:02)
[2019-12-17 01:51] LABS: Basophils % 0.1 %; Hematocrit 36.4 % (35.3-44.9); Immature Granulocytes % 0.8 % (0-4); Lymphocytes # 1.7 K/mcL (0.6-4.6); Lymphocytes % 7.7 %; Mean Corpuscular HGB Conc 30.5 g/dL (31.6-35.5); Mean Corpuscular Hemoglobin 26.2 pg (28.0-33.3); Mean Corpuscular Volume 86.1 fL (83.0-100.0); Mean Platelet Volume 9.5 fL (9.4-12.4); Monocytes % 4.3 %; Neutrophils # 19.2 K/mcL (1.6-8.9); Platelet Count 365 K/mcL (140-400); Red Blood Count 4.23 M/mcL (3.82-4.97); Red Cell Distribution Width 19.3 % (11.5-14.5); Segmented Neutrophils % 87.1 %
[2019-12-17 01:58] LABS: Hemoglobin 11.1 g/dL (11.5-15.4)
[2019-12-17] MEDS: Piperacillin/Tazobactam 3.375 GM in 0.9 % Sodium Chloride Mini Bag 100 ML IVPB SCH ×3 (02:00→16:44)
[2019-12-17 02:09] LABS: BUN/Creatinine Ratio 28 (6-26); Blood Urea Nitrogen 16 mg/dL (6-20); Calcium 9.1 mg/dL (8.6-10.3); Carbon Dioxide 20 mEq/L (23-29); Chloride 108 mEq/L (98-107); Glucose 158 mg/dL (70-105); Magnesium 1.6 mg/dL (1.6-2.6); Osmolality,Calculated 286 (280-300); Sodium 136 mEq/L (136-145); eGFR For African Americans > 60 (> 60); eGFR For Non-African Americans > 60 (> 60)
[2019-12-17] MEDS: Levalbuterol Neb 0.63 MG/3 ML IH SCH ×3 (04:12→15:22)
[2019-12-17] MEDS: MethylPREDNISolone 40 MG/ML VIAL IVP SCH ×3 (05:21→13:14)
[2019-12-17] MEDS: D5% in 0.9% NACL 1,000 ML IVC SCH (06:05)
[2019-12-17] MEDS ORDERED: 0.9 % Sodium Chloride 1,000 ML IVC SCH (08:00)
[2019-12-17] MEDS: Insulin LISPRO 300 UNITS/3 ML VIAL SQ SCH ×3 (08:20→16:48)
[2019-12-17] MEDS ORDERED: Azithromycin 500 MG in 0.9 % Sodium Chloride 250 ML IVPB SCH (09:00)
[2019-12-17] MEDS ORDERED: Budesonide/Formoterol 160/4.5 1 PUFF INH IH SCH (10:00)
[2019-12-17 14:16] VITALS: BP 126/75
[2019-12-17] MEDS ORDERED: Gabapentin 400 MG CAPSULE PO SCH (15:00)
[2019-12-17] MEDS: *HR* Rivaroxaban 10 MG TABLET PO SCH (16:43)
[2019-12-17] MEDS ORDERED: *HR* OxyCODONE Immed Rel 5 MG TABLET PO PRN ×3 (17:06→17:24)
[2019-12-17] MEDS ORDERED: Acetaminophen 325 MG TABLET PO PRN (17:07)
[2019-12-17] MEDS ORDERED: Ketorolac 15 MG/ML VIAL IVP ONE (17:25)
[2019-12-18] MEDS ORDERED: Famotidine 20 MG TABLET PO SCH (09:00)
[2019-12-18] MEDS ORDERED: DULOXETINE HCL 120 MG PO SCH (09:00)
[2019-12-18] MEDS ORDERED: Tiotropium 18 MCG inhalation IH SCH (09:00)
[2019-12-18] MEDS ORDERED: Aspirin Enteric Coated 81 MG Tablet PO SCH (09:00)
== END 2019-12-17 17:48 | disposition left against medical advice (07) | DRG 720 ==
LOC: EMEROOARM 10:43 → 3ANU 10:43 → SUATTDRO 14:25 → 3ANU 15:10
PROVIDERS: ADMIT Family Medicine; ATTEND Internal Medicine

== ENCOUNTER 2021-11-08 16:41 | Observation (INO) ==
[2021-11-08] MEDS ORDERED: Isovue-370 500 ML BOTTLE IVP ONE (17:20)
[2021-11-08] MEDS ORDERED: *HR* LORazepam 2 MG/ML VIAL IVP ONE ×2 (17:41→22:49)
[2021-11-08 17:49] LABS: VBG HCO3 23 mEq/L (21-27); VBG PCO2 28 mmHg (41-51); VBG PH 7.53 pH Units (7.32-7.42); VBG PO2 28 mmHg (25-50)
[2021-11-08 17:50] LABS: Basophils % 0.2 %; Eosinophils % 0.2 %; Hematocrit 41.2 % (35.3-44.9); Hemoglobin 13.5 g/dL (11.5-15.4); Immature Granulocytes % 0.3 % (0-4); Lymphocytes # 2.4 K/mcL (0.6-4.6); Lymphocytes % 18.5 %; Mean Corpuscular HGB Conc 32.8 g/dL (31.6-35.5); Mean Corpuscular Hemoglobin 30.5 pg (28.0-33.3); Monocytes % 7.9 %; Neutrophils # 9.4 K/mcL (1.6-8.9); Platelet Count 470 K/mcL (140-400); Red Blood Count 4.43 M/mcL (3.82-4.97); Red Cell Distribution Width 13.3 % (11.5-14.5); Segmented Neutrophils % 72.9 %; White Blood Count 12.8 K/mcL (4.3-11.1)
[2021-11-08 18:08] LABS: Alanine Aminotransferase 18 Units/L (7-52); Albumin 4.4 g/dL (3.5-5.7); Albumin/Globulin Ratio 1.5 (1.1-2.2); Alkaline Phosphatase 112 Units/L (34-104); Aspartate Amino Transferase 20 Units/L (13-39); BUN/Creatinine Ratio 14 (6-26); Blood Urea Nitrogen 8 mg/dL (6-20); Calcium 10.2 mg/dL (8.6-10.3); Carbon Dioxide 23 mEq/L (23-29); Chloride 107 mEq/L (98-107); Globulin 2.9 g/dL (2.4-3.5); Glucose 104 mg/dL (70-105); Osmolality,Calculated 289 (280-300); Potassium 3.6 mEq/L (3.5-5.1); Sodium 140 mEq/L (136-145); Total Protein 7.3 g/dL (6.4-8.9); eGFR For African Americans > 60 (> 60); eGFR For Non-African Americans > 60 (> 60)
[2021-11-08 18:29] LABS: Influenza A PCR Negative (Negative); Influenza B PCR Negative (Negative); Resp. Syncytial Virus PCR Negative (Negative)
[2021-11-08 18:32] LABS: Bilirubin,Urine Negative (Negative); Blood,Urine Negative (Negative); Clarity,Urine Clear (Clear); Color,Urine Yellow (Yellow); Glucose,Urine (UA) Normal (Normal); Ketones,Urine 20 mg/dL (Negative); Leukocyte Esterase,Urine Negative (Negative); Mucus,Urine Few per lpf (None-Few); Nitrite,Urine Negative (Negative); PH,Urine 8.5 pH Units (5.0-8.0); Protein,Urine 100 mg/dL (Neg-Trace); Specific Gravity,Urine 1.022 (1.010-1.025); Squamous Epithelial Cell,Urine Few per hpf (None-Few); WBC,Urine 0-3 per hpf (0-3)
[2021-11-08 18:33] LABS: SARS-CoV-2 by PCR (In House) Positive (Negative)
[2021-11-09] MEDS ORDERED: Ondansetron 4 MG/2 ML VIAL IVP PRN (01:06)
[2021-11-09] MEDS ORDERED: Naloxone 0.4 MG/ML INJ IVP PRN (01:06)
[2021-11-09] MEDS ORDERED: Acetaminophen 325 MG TABLET PO PRN (01:06)
[2021-11-09] MEDS ORDERED: Famotidine 20 MG TABLET PO PRN (03:10)
[2021-11-09] MEDS ORDERED: traZODone 50 MG TABLET PO PRN (03:10)
[2021-11-09] MEDS ORDERED: SUMAtriptan succinate 50 MG TABLET PO PRN (03:18)
[2021-11-09] MEDS ORDERED: Tiotropium 10 INH DOSE IH ONE (04:19)
[2021-11-09] MEDS ORDERED: Budesonide/Formoterol 160/4.5 1 PUFF INH IH ONE (04:20)
[2021-11-09 04:41] LABS: Fibrinogen 508 mg/dL (169-393); INR 1.1
[2021-11-09 04:46] LABS: Basophils % 0.3 %; Eosinophils # 0.1 K/mcL (0.0-0.6); Eosinophils % 0.6 %; Hematocrit 37.2 % (35.3-44.9); Hemoglobin 12.6 g/dL (11.5-15.4); Immature Granulocytes % 0.3 % (0-4); Lymphocytes # 3.1 K/mcL (0.6-4.6); Lymphocytes % 27.1 %; Mean Corpuscular HGB Conc 33.9 g/dL (31.6-35.5); Mean Corpuscular Hemoglobin 31.3 pg (28.0-33.3); Mean Corpuscular Volume 92.5 fL (83.0-100.0); Mean Platelet Volume 10.1 fL (9.4-12.4); Monocytes # 1.2 K/mcL (0.0-1.3); Monocytes % 10.5 %; Neutrophils # 7.1 K/mcL (1.6-8.9); Platelet Count 446 K/mcL (140-400); Red Blood Count 4.02 M/mcL (3.82-4.97); Red Cell Distribution Width 13.5 % (11.5-14.5); Segmented Neutrophils % 61.2 %; White Blood Count 11.6 K/mcL (4.3-11.1)
[2021-11-09 04:47] LABS: D-Dimer 357 ng/mLFEU (0-500)
[2021-11-09 05:03] LABS: BUN/Creatinine Ratio 14 (6-26); Blood Urea Nitrogen 8 mg/dL (6-20); Calcium 9.7 mg/dL (8.6-10.3); Carbon Dioxide 22 mEq/L (23-29); Chloride 110 mEq/L (98-107); Glucose 114 mg/dL (70-105); Osmolality,Calculated 293 (280-300); Potassium 3.3 mEq/L (3.5-5.1); Sodium 142 mEq/L (136-145); eGFR For African Americans > 60 (> 60); eGFR For Non-African Americans > 60 (> 60)
[2021-11-09 05:04] LABS: Troponin I < 0.03 ng/mL (< 0.04)
[2021-11-09 05:06] LABS: C-Reactive Protein < 5 mg/L (Less than 10); Lactate Dehydrogenase 170 Units/L (140-271)
[2021-11-09 05:17] LABS: Thyroid Stimulating Hormone 0.692 mcIU/mL (0.340-5.600)
[2021-11-09 05:21] LABS: Ferritin 12 ng/mL (10-120)
[2021-11-09] MEDS: Tiotropium 10 INH DOSE IH SCH (07:17)
[2021-11-09] MEDS: Budesonide/Formoterol 160/4.5 1 PUFF INH IH SCH ×2 (07:17→20:29)
[2021-11-09] MEDS: Aspirin Enteric Coated 81 MG Tablet PO SCH (08:38)
[2021-11-09] MEDS: Furosemide 20 MG TABLET PO SCH ×2 (08:38→17:11)
[2021-11-09] MEDS: Metoprolol XL (24 HR) Succ 25 MG TAB.ER.24H PO SCH ×2 (08:38→21:25)
[2021-11-09] MEDS: Loratadine 10 MG TABLET PO SCH (08:38)
[2021-11-09] MEDS: Magnesium Oxide 400 MG TABLET PO SCH (08:38)
[2021-11-09] MEDS: BuPROPion XL (24 HR) 150 MG TABLET PO SCH (08:38)
[2021-11-09] MEDS ORDERED: *HR* Dextrose 50 % in Water (Syg) 50 ML SYRINGE IVP PRN (14:18)
[2021-11-09] MEDS ORDERED: Dextrose Gel 15 GM/37.5 ML TUBE PO PRN ×2 (14:18)
[2021-11-09] MEDS ORDERED: D5% in Water 1,000 ML IVC PRN (14:18)
[2021-11-09] MEDS: Fluticasone Propionate Nasal 50 MCG/SPRAY BOTTLE NS SCH (14:57)
[2021-11-09] MEDS: Insulin LISPRO 300 UNITS/3 ML VIAL SUBQ SCH (16:20)
[2021-11-09] MEDS: *HR* Rivaroxaban 10 MG TABLET PO SCH (17:10)
[2021-11-09] MEDS ORDERED: Insulin LISPRO 300 UNITS/3 ML VIAL SUBQ SCH (21:00)
[2021-11-10 02:40] LABS: Hematocrit 37.5 % (35.3-44.9); Hemoglobin 12.4 g/dL (11.5-15.4); Mean Corpuscular HGB Conc 33.1 g/dL (31.6-35.5); Mean Corpuscular Hemoglobin 30.7 pg (28.0-33.3); Mean Corpuscular Volume 92.8 fL (83.0-100.0); Platelet Count 440 K/mcL (140-400); Red Blood Count 4.04 M/mcL (3.82-4.97); Red Cell Distribution Width 13.7 % (11.5-14.5); White Blood Count 12.9 K/mcL (4.3-11.1)
[2021-11-10 02:57] LABS: BUN/Creatinine Ratio 18 (6-26); Blood Urea Nitrogen 11 mg/dL (6-20); Calcium 9.4 mg/dL (8.6-10.3); Carbon Dioxide 21 mEq/L (23-29); Chloride 111 mEq/L (98-107); Glucose 122 mg/dL (70-105); Osmolality,Calculated 293 (280-300); Potassium 3.4 mEq/L (3.5-5.1); Sodium 141 mEq/L (136-145); eGFR For African Americans > 60 (> 60); eGFR For Non-African Americans > 60 (> 60)
[2021-11-10] MEDS: Budesonide/Formoterol 160/4.5 1 PUFF INH IH SCH (07:33)
[2021-11-10] MEDS: Tiotropium 10 INH DOSE IH SCH (07:34)
[2021-11-10] MEDS: Insulin LISPRO 300 UNITS/3 ML VIAL SUBQ SCH ×3 (09:28→17:39)
[2021-11-10] MEDS: BuPROPion XL (24 HR) 150 MG TABLET PO SCH (09:28)
[2021-11-10] MEDS: Metoprolol XL (24 HR) Succ 25 MG TAB.ER.24H PO SCH (09:29)
[2021-11-10] MEDS: Aspirin Enteric Coated 81 MG Tablet PO SCH (09:29)
[2021-11-10] MEDS: Magnesium Oxide 400 MG TABLET PO SCH (09:29)
[2021-11-10] MEDS: Fluticasone Propionate Nasal 50 MCG/SPRAY BOTTLE NS SCH (09:30)
[2021-11-10] MEDS: Furosemide 20 MG TABLET PO SCH ×2 (09:30→16:34)
[2021-11-10] MEDS: Loratadine 10 MG TABLET PO SCH (09:30)
[2021-11-10 12:40] VITALS: BP 123/88; PULSE 65; TEMP 98.3; O2SAT 97
[2021-11-10] MEDS: *HR* Rivaroxaban 10 MG TABLET PO SCH (16:34)
== END 2021-11-10 18:06 | disposition home or self-care (01) ==
LOC: 3ANU 16:41 → EMEROOARM 16:41 → SUATTDRO 11-09 00:33 → 3ANU 11-09 01:00
PROVIDERS: ADMIT Internal Medicine; ATTEND Internal Medicine